=== PATIENT | male | born 1990 | race Two or more races ===

== ENCOUNTER 2024-09-11 09:54 | Emergency (ER) | payer OTHER ==
[~2024-09-11] VITALS: Ht 172.7 cm; Wt 71.7 kg
[2024-09-11] MEDS ORDERED: PEPCID AC10 MG PO (09:57)
[2024-09-11] MEDS ORDERED: FAMOTIDINE/PF 20 MG in 0.9 % SODIUM CHLORIDE 8 ML IV PUSH STA (10:03)
[2024-09-11] MEDS ORDERED: METOCLOPRAMIDE HCL 5 MG/ML VIAL ONE (10:08)
[2024-09-11] MEDS ORDERED: FAMOTIDINE/PF 20 MG/2 ML VIAL ONE (10:09)
[2024-09-11] MEDS ORDERED: CIPROFLOXACIN IN 5 % DEXTROSE 400 MG/200 ML PIGGYBAG IV ONE ×2 (10:09→10:15)
[2024-09-11] MEDS ORDERED: DIPHENOXYLATE HCL/ATROPINE 1 UDTAB TABLET PO ONE (10:15)
[2024-09-11] MEDS ORDERED: 0.9 % SODIUM CHLORIDE 1,000 ML IV SCH (10:15)
[2024-09-11] MEDS ORDERED: METOCLOPRAMIDE HCL 10 MG in DEXTROSE 5 % IN WATER 50 ML IV ONE (10:15)
[2024-09-11 10:35] LABS: HEMOGLOBIN 15.2 g/dL (13-16.00); MEAN CELL VOLUME 87.3 fL (80.0-100.00); MEAN CORPUSCULAR HEMOGLOBIN 30.1 pg (27.00-32.0); MEAN CORPUSCULAR HGB CONC 34.5 g/dl (32.0-36.0); PLATELET COUNT 273 K/uL (150-450); RED BLOOD COUNT 5.04 M/uL (4.00-6.00); RED CELL DISTRIBUTION WIDTH 12.9 % (11.5-14.5)
[2024-09-11 11:20] LABS: ALBUMIN 4.1 gm/dL (3.4-5.0); BILIRUBIN TOTAL 1.06 mg/dL (0.3-1.2); CALCIUM 9.3 mg/dL (8.5-10.1); CREATININE SERUM 0.92 mg/dL (0.70-1.30); GFR 94.75; POTASSIUM 4.04 mEq/L (3.5-5.1); TOTAL PROTEIN 8.1 gm/dL (6.4-8.2)
[2024-09-11] MEDS ORDERED: ONDANSETRON ODT8 MG PO (13:08)
[2024-09-11] MEDS ORDERED: CIPRO500 MG PO (13:08)
[2024-09-11] MEDS ORDERED: PEPCID AC20 MG PO (13:08)
== END 2024-09-11 13:13 | disposition home or self-care (01) ==
LOC: ER 09:57
PROVIDERS: General Practice
DX: K52.9 Noninfective gastroenteritis and colitis, unspecified (principal); Z91.013 Allergy to seafood